=== PATIENT | female | born 1965 | race Caucasian/White ===

== ENCOUNTER 2017-03-20 20:46 | Emergency (ER) | payer OTHER ==
[~2017-03-20] VITALS: Ht 157.5 cm; Wt 92.0 kg
[~2017-03-20 20:46] MED LIST: ADVIL,NUPRIN,M200 MG PO; BACTRIM,SEPT1 TABLET PO; CLINDAMYCIN HC300 MG PO; ENDOCET 5-3251 EACH PO; GLIPIZIDE XL10 MG PO; GLUCOPHAGE500 MG PO; GLUCOTROL10 MG PO; INDOCIN25 MG PO; KEFLEX500 MG PO; LEVEMIR FL100 UNITS/; LEVEMIR FL100 UNITS/ SC; LEVEMIR100 UNIT/2 SC; LISINOPRIL10 MG PO; Lopressor PO; MELOXICAM15 MG PO; NORCO 5/3251 TABLET PO; PRAVASTATIN SOD20 MG PO; SYNTHROID100 MCG PO
[2017-03-20 21:08] LABS: POINT-OF-CARE METER ID UU13113778
[2017-03-20 21:37] LABS: HEMATOCRIT 29.2 % (36.0-46.0); MCH 28.5 PG (29.0-34.0); MCHC 32.9 G/DL (30.0-36.0); MCV 86.6 FL (83-99); MEAN PLAT.VOLUME 10.7 uM^3 (9.5-12.4); PLATELET COUNT 155 K/uL (156-360); RBC DIS.WIDTH-CV 12.9 % (11.8-14.6); RBC DIS.WIDTH-SD 40.4 % (39-53); RED BLOOD COUNT 3.37 M/uL (3.80-5.20); WHITE BLOOD COUNT 7.3 K/uL (4.1-10.2)
[2017-03-20 21:45] LABS: CHLORIDE 110 mEq/L (99-109); POTASSIUM 4.4 mEq/L (3.7-5.4); SODIUM 140 mEq/L (136-147)
[2017-03-20 21:47] LABS: GLUCOSE 132 mg/dL (70-99)
[2017-03-20 21:48] LABS: ANION GAP 8 MEQ/L (2-14); PTT 24.5 (25-32)
[2017-03-20 21:51] LABS: GFR ESTIMATE (CALCULATED) 25 mL/min/
[2017-03-20 21:52] LABS: UREA NITROGEN (BUN) 48 mg/dL (9-23)
[2017-03-20] MEDS ORDERED: LEVEMIR FL100 UNIT/1 SC (22:04)
[2017-03-20] MEDS ORDERED: LABETALOL HCL100 MG PO (22:04)
[2017-03-20] MEDS ORDERED: FUROSEMIDE40 MG PO (22:05)
[2017-03-20] MEDS ORDERED: IRBESARTAN150 MG PO (22:05)
[2017-03-20] MEDS ORDERED: HUMALOG100 UNIT/2 SC (22:06)
[2017-03-20] MEDS ORDERED: RAYALDEE30 MCG PO (22:07)
[2017-03-20] MEDS ORDERED: ULTRAM50 MG PO (22:58)
[2017-03-20 23:33] VITALS: BP 177/79
== END 2017-03-20 23:44 | disposition home or self-care (01) ==
LOC: EME 20:46
PROVIDERS: Emergency Medicine
DX: R25.2 Cramp and spasm (principal); N28.9 Disorder of kidney and ureter, unspecified; D64.9 Anemia, unspecified; I10 Essential (primary) hypertension; E78.5 Hyperlipidemia, unspecified; E11.9 Type 2 diabetes mellitus without complications; Z79.84 Long term (current) use of oral hypoglycemic drugs
CPT/HCPCS: 80048; 82948; 85027; 85610; 85730; 93971; 99281; 99284